=== PATIENT | female | born 1935 | race Caucasian/White ===

== ENCOUNTER 2017-04-05 13:46 | Emergency (ER) | payer MEDICARE ==
[~2017-04-05 13:46] MED LIST: Sodium Chloride 0.9% 1,000 ML BAG ONE
[2017-04-05 14:46] LABS: ALT (SGPT) 12 U/L (8-55); AST (SGOT) 31 U/L (5-34); Albumin 3.1 g/dL (3.4-4.8); Alkaline Phosphatase 39 U/L (40-150); Anion Gap 19 mmol/L (10-20); BUN (Urea Nitrogen) 29 mg/dL (9.8-20.1); Bilirubin, Total 0.6 mg/dL (0.2-1.2); Calc. Creatinine Clearance 0 mL/min (70-130); Calcium 8.7 mg/dL (7.8-10.44); Carbon Dioxide 21 mmol/L (23-31); Chloride 93 mmol/L (98-107); Estimated GFR-MDRD 43; Glucose 107 mg/dL (83-110); Lipase 21 U/L (8-78); Potassium 3.2 mmol/L (3.5-5.1); Protein, Total 7.1 g/dL (6.0-8.3); Sodium 130 mmol/L (136-145)
[2017-04-05 14:49] LABS: Hemoglobin 8.8 g/dL (12.0-16.0); Lymphocytes 60 % (21-51); MDiff Complete? YES; Mean Corpuscular HGB CONC 34.3 g/dL (32.0-36.0); Mean Corpuscular Hemoglobin 28.7 pg (27.0-31.0); Mean Corpuscular Volume 83.6 fl (81.0-99.0); Mean Platelet Volume 5.8 fL (7.4-10.4); Monocytes 10 % (0-10); Neutrophil 10 % (42-75); PLT Morphology Comment Appears Adequate; Platelet Count 324 thou/uL (130-400); RBC Distribution Width 12.6 % (11.5-14.5); Reactive Lymphocytes 20 % (0-10); Red Blood Cell (RBC) Count 3.08 mill/uL (4.20-5.40)
[2017-04-05 14:51] LABS: Manual Diff?? YES
[2017-04-05 14:54] LABS: White Blood Cell (WBC) Count 0.3 thou/uL (4.8-10.8)
[2017-04-05] MEDS ORDERED: Ibuprofen 400 MG TAB ONE (14:58)
== END 2017-04-05 16:40 | disposition short-term general hospital (02) ==
LOC: MADERS 13:46
DX: D70.9 Neutropenia, unspecified (principal); R50.81 Fever presenting with conditions classified elsewhere; D64.9 Anemia, unspecified; E86.0 Dehydration; I95.9 Hypotension, unspecified; I48.91 Unspecified atrial fibrillation; C56.9 Malignant neoplasm of unspecified ovary; I10 Essential (primary) hypertension
CPT/HCPCS: 80053; 82150; 83605; 83690; 85025; 87040; 93005; 96360; 96361; J7050